=== PATIENT | female | born 1960 | race Caucasian/White ===

== ENCOUNTER 2019-06-09 16:22 | Emergency (ER) | payer MEDICARE, MEDICAID, SELFPAY ==
[2019-06-09 16:24] VITALS: BP 133/87; PULSE 67; RESP 16; TEMP 36.5; O2SAT 97; BMI 27.4
--- NOTE | 2019-06-09 16:34 | W.ED.BACK ---
HPI - Back Pain/Injury General: Chief Complaint: Back Pain/Injury Stated Complaint: multiple complaints Time Seen by Provider: 06/09/19 16:24 History of Present Illness: HPI Narrative: Patient states that she has had a previous back injury a long history of low back pain. Patient has left-sided back pain that radiates down into her left leg. The nurse practitioner that the patient sees at her set up for an MRI of the spine that was never performed because of the COVID lockdown. MD elicited complaint: back pain and back injury Pertinent past history: prior back pain Timing: constant and progressively worsening Severity: similar to previous episodes Similar Symptoms Previously: Yes Location: lumbar spine and left lower back Radiation: buttocks and left upper leg Exacerbating factors: movement Relieving factors: none Associated symptoms: Reports no associated symptoms Review of Systems General: Reports: 10 or more systems reviewed and unremarkable except in HPI and below PFSH ED PFSH: Social History Smoking and tobacco status: current every day smoker Physical Exam Const: COMMON NORMALS: no apparent distress and oriented x3 Back/Pelvis: COMMON NORMALS: straight leg raise negative bilaterally LUMBAR SPINE/LOWER BACK: Yes ROM limited, Yes pain with ROM, Yes paraspinal muscle tenderness, Yes paraspinal muscle spasm and Yes straight leg raise negative bilaterally Neuro: COMMON NORMALS: oriented x3 Course Vital Signs: Vital signs: Vital Signs Temperature 97.7 F 06/09/19 16:24 Pulse Rate 67 06/09/19 16:24 Respiratory Rate 16 06/09/19 16:24 Blood Pressure 133/87 06/09/19 16:24 Pulse Oximetry 97 06/09/19 16:24 Discharge Plan Discharge Patient Disposition: Home, Self-Care Clinical Impression: Lumbar radiculopathy Sciatica Qualifiers: Laterality: left Qualified Code(s): M54.32 - Sciatica, left side Condition: Stable Prescriptions: New cyclobenzaprine 10 mg tablet 10 mg PO TID PRN (Reason: muscle spasm) Qty: 15 RF: 0 hydrocodone-acetaminophen 5-325 mg tablet 1 tab PO Q4H PRN (Reason: pain) Qty: 10 RF: 0 Discharge Orders: Discharge Order (Routine); Ordered 06/09/19 Ordered By: Ruben Aguirre Referrals: Kalen Iglesias DO [Family Provider] - Coding Level of Care Code ED Party Plan Demonstrator for Chg Fwd Exam Expanded Problem Focused
--- NOTE | 2019-06-09 16:37 | XR_ITS ---
WS: [id number] LUMBAR SPINE: 3 VIEWS TECHNIQUE: AP, lateral and L5-S1 spot. HISTORY: sciatica COMPARISON: None available. Normal posterior lumbar alignment. Mild disc space narrowing and desiccation at L2-3 with osteophytes . No fractures. There is very slight RIGHT convex curvature of the lumbar spine which could be due to scoliosis or positioning. Laminectomy defect is likely at the L5 level. SI joints are symmetric bilaterally. No soft tissue abnormalities. Prior cholecystectomy. XR/XR lumbar spine 2-3V* [id number] IMPRESSION: 1. Moderate spondylitic changes throughout the lumbar spine. Most significant degenerative changes at L2-3. 2. Prior cholecystectomy.
--- NOTE | 2019-06-09 17:02 | PC.NURSE ---
Pt transported to XR.
[2019-06-09 17:27] VITALS: BP 122/94; PULSE 80; RESP 17; O2SAT 96
== END 2019-06-09 17:25 | disposition home or self-care (01) ==
LOC: ER 17:40
PROVIDERS: Emergency Provider Family Medicine; Family Provider Family Medicine; PCP Nurse Practitioner Family
DX: M54.32 Sciatica, left side (principal); M54.16 Radiculopathy, lumbar region; F17.210 Nicotine dependence, cigarettes, uncomplicated
CPT/HCPCS: 12345; 72100; 99281; 99282

== ENCOUNTER → 2024-05-29 10:27 | Outpatient (BNVA) | payer MEDICARE, MEDICAID, SELFPAY | PROVIDERS: PCP Nurse Practitioner Family; Visit Provider Orthopaedic Surgery | DX: M25.562 Pain in left knee (principal); G89.29 Other chronic pain | CPT/HCPCS: 73560; 73565; 99204 ==

== ENCOUNTER 2024-06-03 13:27 | Outpatient (CLI) | payer MEDICARE, MEDICAID, SELFPAY ==
--- NOTE | 2024-06-03 13:45 | MR_ITS ---
WS: [id number] MRI LEFT KNEE HISTORY: knee pain COMPARISON: Radiograph 05/29/2024 Anterior cruciate ligament: Intact. Posterior cruciate ligament: Intact. Medial collateral ligament: Intact. Posterior lateral corner structures: Intact. Medial menisci: Intact. Normal signal, size and shape. Lateral meniscus: Intact. Normal signal, size and shape. Extensor mechanism: Distal quadriceps tendon and patellar tendons are intact. Fluid and soft tissue: No joint effusion. Very tiny Hernandez's cyst. Osseous and articular structures: Patellofemoral compartment: Normal joint space. There is a very subtle area of chondromalacia over the lateral patellar facet. No underlying marrow edema. Medial compartment: Very mild narrowing of the medial compartment. No marrow edema. No full-thickness cartilage defect. Lateral compartment: Very mild narrowing of the lateral compartment. No marrow edema or cartilage defects. MR/MR knee LT con* [id number] IMPRESSION: 1. No ACL or meniscal tear. 2. Very small Hernandez's cyst. 3. Very minimal chondromalacia lateral patellar facet.
== END 2024-06-03 13:28 | disposition home or self-care (01) ==
PROVIDERS: PCP Nurse Practitioner Family; Visit Provider Orthopaedic Surgery
DX: M25.562 Pain in left knee (principal)
CPT/HCPCS: 73721

== ENCOUNTER → 2024-06-22 11:37 | Outpatient (BNVA) | payer MEDICARE, SELFPAY | PROVIDERS: PCP Nurse Practitioner Family; Visit Provider Orthopaedic Surgery | DX: M25.562 Pain in left knee (principal) | CPT/HCPCS: 99213 ==

== ENCOUNTER 2024-09-01 09:22 | Outpatient (CLI) | payer MEDICARE, MEDICAID, SELFPAY ==
--- NOTE | 2024-09-01 09:20 | MM_ITS ---
WS: [id number] BILATERAL 3D TOMOSYNTHESIS DIGITAL SCREENING MAMMOGRAPHY WITH CAD CLINICAL INFORMATION: SCREENING HISTORY: Screening mammogram. No current complaints. COMPARISON: 2021 TECHNIQUE: Bilateral CC and MLO views. FINDINGS: Scattered fibroglandular densities bilaterally. No suspicious focal mass, asymmetry, calcifications, or architectural distortion. No evidence of malignancy. Lucent centered calcification LEFT breast. Vascular calcification. MM/MM scr tomosynthesis [id number] IMPRESSION: DENSITY: There are scattered areas of fibroglandular density. BI-RADS: 2 - Benign. FOLLOW UP: 1 Year Follow-up Recommend return to annual screening mammography.
== END 2024-09-01 09:23 | disposition home or self-care (01) ==
PROVIDERS: PCP Nurse Practitioner Family; Visit Provider Nurse Practitioner Family
DX: Z12.31 Encounter for screening mammogram for malignant neoplasm of breast (principal)
CPT/HCPCS: 77063; 77067